=== PATIENT | male | born 1965 | race Caucasian/White ===

== ENCOUNTER 2024-03-01 19:58 | Emergency (ER) | payer MEDICAID, OTHER ==
[~2024-03-01] VITALS: Ht 167.6 cm; Wt 61.0 kg
[2024-03-01 20:21] VITALS: TEMP 98.1; O2SAT 100
[2024-03-01] MEDS: FLUORESCEIN SODIUM 1MG/STRIP RIGHTEYE ONE (22:48)
[2024-03-01] MEDS: TETRACAINE 0.5% OPHTH DROPS 4ML RIGHTEYE ONE (22:48)
[2024-03-01 23:14] VITALS: BP 154/86; PULSE 60; RESP 18; O2SAT 100
== END 2024-03-01 23:15 | disposition home or self-care (01) ==
LOC: ER 19:58
DX: H57.11 Ocular pain, right eye (principal); Z77.098 Contact with and (suspected) exposure to other hazardous, chiefly nonmedicinal, chemicals
CPT/HCPCS: 99283